=== PATIENT | female | born 1980 | race Caucasian/White ===

== ENCOUNTER 2016-07-29 08:50 | Emergency (ER) | payer OTHER ==
[2016-07-29] MEDS ORDERED: NORCO 5-325 TA1 EACH PO (10:03)
== END 2016-07-29 10:20 ==
LOC: EDMED 08:50
DX: S63.502A Unspecified sprain of left wrist, initial encounter (principal); V49.40XA Driver injured in collision with unspecified motor vehicles in traffic accident, initial encounter; Y92.410 Unspecified street and highway as the place of occurrence of the external cause